=== PATIENT | female | born 1990 | race Two or more races ===

== ENCOUNTER 2020-04-27 17:35 | Emergency (ER) | payer MEDICAID ==
[~2020-04-27] VITALS: Ht 170.2 cm; Wt 79.4 kg
[2020-04-27] MEDS ORDERED: SUMAtriptan SUCCINATE 25 MG TAB PO ONE (19:00)
[2020-04-27] MEDS ORDERED: ONDANSETRON ODT 4 MG TAB PO ONE (19:00)
[2020-04-27] MEDS ORDERED: SODIUM CHLORIDE 0.9% 1,000 ML IV ONE (20:45)
[2020-04-27 22:08] VITALS: BP 116/64
== END 2020-04-27 22:36 | disposition home or self-care (01) ==
LOC: ER 17:35
DX: G43.909 Migraine, unspecified, not intractable, without status migrainosus (principal)
CPT/HCPCS: 70450; 96360; 99284; J7030; Q0162

== ENCOUNTER 2024-07-17 21:33 | Emergency (ER) | payer MEDICAID ==
[~2024-07-17] VITALS: Ht 170.2 cm; Wt 92.0 kg
--- NOTE | 2024-07-17 22:12 | ED.PDOC ---
Eye-HPI HPI Comments This is a 33-year-old female presents to the ED chief complaint sore throat. Patient states sore throat x4 days was diagnosed with acute tonsillitis 2 days ago at urgent care and it was prescribed azithromycin due to her allergies to cillins. She notes has been on it for 2 days with little improvement. Also states has been taking Tylenol [id number] 1 g. She reports related symptoms of nausea and dizziness. She denies difficulty swallowing, chest pain, shortness of breath, or difficulty in breathing. Chief Complaint: Sore Throat Time Seen by MD: 21:37 Primary Care Provider: MATTHIAS Reviewed Notes: Nurses Notes, Medications, Allergies Allergies: Coded Allergies: Penicillins (Verified Allergy, Unknown, 04/27/20) Home Meds Active Scripts Azithromycin (Azithromycin) 500 Mg Tab, 1 TAB PO DAILY for 4 Days, #4 TAB Prov:LEN MCCORMICK FLASH WELDING MACHINE OPERATOR 07/17/24 Methylprednisolone (Medrol Dosepak) 4 Mg Rg, 4 MG PO UD for 6 Days, #21 TAB UAD Prov:ELN MCCORMICK FLASH WELDING MACHINE OPERATOR 07/17/24 Mode of Arrival: Ambulatory Past Medical History PAST MEDICAL HISTORY: Denies Surgical History: Denies all surgeries SUPPLY OFFICER History: No Pertinent SUPPLY OFFICER History Family History Family History: Reviewed,noncontributory to illness Constitutional: reports: fever; denies: chills, diaphoresis, fatigue, malaise, sweats, weakness, others EENTM: reports: throat pain, throat swelling; denies: blurred vision, double vision, ear bleeding, ear discharge, ear drainage, ear pain, ear ringing, eye pain, eye redness, hearing loss, mouth pain, mouth swelling, nasal discharge, nose bleeding, nose congestion, nose pain, photophobia, tearing, voice changes, others Respiratory: denies: cough, hemoptysis, orthopnea, SOB at rest, shortness of breath, SOB with excertion, stridor, wheezing, others Cardiovascular: denies: chest pain, dizzy spells, diaphoresis, Dyspnea on exertion, edema, irregular heart beat, left arm pain, lightheadedness, palpitations, PND, syncope, others Gastrointestinal: denies: abdomen distended, abdominal pain, blood streaked bowels, constipated, diarrhea, dysphagia, difficulty swallowing, hematemesis, melena, nausea, poor appetite, poor fluid intake, rectal bleeding, rectal pain, vomiting, others Genitourinary: denies: abnormal vagina bleeding, burning, dyspareunia, dysuria, flank pain, frequency, hematuria, incontinence, pain, , vagina discharge, urgency, others Neurological: denies: dizziness, fainting, headache, left sided numbness, left sided weakness, numbness, paresthesia, pre-existing deficit, right sided numbness, right sided weakness, seizure, speech problems, tingling, tremors, weakness, others Musculoskeletal: denies: back pain, gout, joint pain, joint swelling, muscle pain, muscle stiffness, neck pain, others Integumetry: denies: bruises, change in color, change in hair/nails, dryness, laceration, lesions, lumps, rash, wounds, others Allergic/Immunocompromised: denies: Difficulty Healing, Frequent Infections, Hives, Itching, others Hematologic/Lymphatic: denies: anemia, blood clots, easy bleeding, easy bruising, swollen glands, others Endocrine: denies: excessive hunger, excessive sweating, excessive thirst, excessive urination, flushing, intolerance to cold, intolerance to heat, unexplained weight gain, unexplained weight loss, others Psychiatric: denies: anxiety, bipolar disorder, depression, hopeless, panic disorder, schizophrenia, sleepless, suicidal, others Physical Exam General Appearance: No Apparent Distress, Normal HEENT: Pharyngeal Erythema, TMs Normal, Tonsillar Exudate (Tonsils grade 3 with exudate bilateral) Neck: Full Range of Motion, Non-Tender, Normal, Normal Inspection Respiratory: Chest Non-Tender, Lungs Clear, No Accessory Muscle Use, No Respiratory Distress, Normal Breath Sounds Cardiovascular: No Edema, No JVD, No Murmur, No Gallop, Normal Peripheral Pulses, Regular Rate/Rhythm Breast Exam: Deferred Gastrointestinal: No Organomegaly, Non Tender, No Pulsatile Mass, Normal Bowel Sounds, Soft Genitalia: Deferred Pelvic: Deferred Rectal: Deferred Extremities: Normal capillary refill, Normal inspection, Normal range of motion, Non-tender, No pedal edema Musculoskeletal : Apperance: Normal Neurologic: Alert, dynamotor repairer II-XII nml as Tested, No Motor Deficits, Normal Affect, Normal Mood, No Sensory Deficits Cerebellar Function: Normal Reflexes: Normal Skin: Dry, Normal Color, Warm Lymphatic: No Adenopathy Was a procedure done? Was a procedure done?: No EENT DIFF Eye: N/A Sore Throat: Streptococcal X-Ray, Labs, Meds, VS Vital Signs Date Time Temp Pulse Resp B/P (MAP) Pulse Ox O2 Delivery O2 Flow Rate FiO2 07/17/24 22:40 96 20 98 07/17/24 22:40 99.1 96 20 107/56 (73) 98 99.1 07/17/24 21:49 99.1 86 20 159/75 (103) 97 Current Medications Medications (Trade) Dose Ordered Sig/Logan Route Start Time Stop Time Status Last Admin Ketorolac Tromethamine (Toradol Injection) 60 mg ONCE ONCE IM 07/17/24 22:15 07/17/24 22:16 DC 07/17/24 22:15 Dexamethasone Sodium Phosphate (Decadron Injection) 10 mg ONCE ONCE IM 07/17/24 22:15 07/17/24 22:16 DC 07/17/24 22:14 X-Ray, Labs, Meds, VS Comment Toradol and Decadron given IM patient reports improvement in symptoms pain patient requesting discharge at this time. Advised patient is stopping antibiotics we will start azithromycin 500 mg 1 tab x4 days. Also advised to start Medrol Dosepak in 2 days if pain and swelling continues. Advised to rest increase p.o. fluids consider popsicles or avoid spicy hot food and chips. He is to follow up with her PCP in 2-3 days as necessary. ER return precautions given patient on indicated understanding patient agrees with discharge plan of care Time of 1ST Reevaluation: 22:50 Reevaluation 1ST: Improved Patient Education/Counseling: Diagnosis, Treatment, Prognosis, Need For Follow Up Family Education/Counseling: Diagnosis, Treatment, Prognosis, Need For Follow Up Departure 1 Departure Time of Disposition: 22:54 Impression: Primary Impression: Acute tonsillitis Qualified Codes: J03.90 - Acute tonsillitis, unspecified Disposition: HOME / SELF CARE / HOMELESS Condition: Stable e-Prescriptions Azithromycin (Azithromycin) 500 Mg Tab 1 TAB PO DAILY for 4 Days, #4 TAB Prov: LEN MCCORMICK FLASH WELDING MACHINE OPERATOR 07/17/24 Methylprednisolone (Medrol Dosepak) 4 Mg Rg 4 MG PO UD for 6 Days, #21 TAB UAD Prov: LEN MCCORMICK FLASH WELDING MACHINE OPERATOR 12/12/24 Discharged With: Spouse Critical Care Note Critical Care Time?: No Stability Stability form required: LEN Barnett Jul 17, 2024 22:12
[2024-07-17] MEDS: DexAMETHasone SOD PHOS 10MG/1ML VIAL INJ IM ONE (22:14)
[2024-07-17] MEDS: KETOROLAC TROMETH 60MG/2ML VIAL IM ONE (22:15)
[2024-07-17 22:40] VITALS: BP 107/56; PULSE 96; RESP 20; TEMP 99.1; O2SAT 98
[2024-07-17] MEDS ORDERED: METH4PAK PO (22:56)
[2024-07-17] MEDS ORDERED: AZIT500T66 PO (22:56)
== END 2024-07-17 23:04 | disposition home or self-care (01) ==
LOC: ER 21:33
DX: J03.90 Acute tonsillitis, unspecified (principal); Z88.0 Allergy status to penicillin; Z79.899 Other long term (current) drug therapy
CPT/HCPCS: 96372; 99284; J1100; J1885